=== PATIENT | female | born 1990 ===

== ENCOUNTER 2021-05-30 05:30 | Day surgery (SDC) | payer OTHER ==
[~2021-05-30 05:30] MED LIST: TIROSINT50 MCG PO
== END 2021-05-30 14:50 | disposition home or self-care (01) ==
LOC: CIR.AMB 05:30
PROVIDERS: ATTEND Obstetrics & Gynecology
DX: L02.214 Cutaneous abscess of groin (principal); Z20.822 Contact with and (suspected) exposure to COVID-19